=== PATIENT | female | born 1960 | race Hispanic/Latino ===

== ENCOUNTER 2023-09-13 15:49 | Emergency (ER) | payer OTHER ==
[~2023-09-13] VITALS: Ht 152.4 cm; Wt 78.5 kg
[2023-09-13] MEDS ORDERED: IBUPROFEN 600 MG TAB PO STA (17:01)
[2023-09-13] MEDS ORDERED: ULTRAM 50MG50 MG PO (18:23)
[2023-09-13 20:13] VITALS: BP 123/85; PULSE 77; RESP 18; O2SAT 100
== END 2023-09-13 20:00 | disposition home or self-care (01) ==
LOC: ER 16:40
DX: S62.101A Fracture of unspecified carpal bone, right wrist, initial encounter for closed fracture (principal); S52.611A Displaced fracture of right ulna styloid process, initial encounter for closed fracture; M25.512 Pain in left shoulder; M25.511 Pain in right shoulder; M25.552 Pain in left hip; M25.561 Pain in right knee; W11.XXXA Fall on and from ladder, initial encounter; Y92.89 Other specified places as the place of occurrence of the external cause; E78.5 Hyperlipidemia, unspecified
CPT/HCPCS: 71045; 99283